=== PATIENT | female | born 1980 | race Hispanic/Latino ===

== ENCOUNTER 2021-09-20 11:36 | Emergency (ER) | payer OTHER ==
[2021-09-20] MEDS ORDERED: METHYLPREDNISOLONE 125 MG INJ ONE (14:02)
[2021-09-20] MEDS ORDERED: DIPHENHYDRAMINE 50 MG/ML VIAL ONE (14:03)
[2021-09-20] MEDS ORDERED: FAMOTIDINE 20 MG/2 ML VIAL IV ONE (14:03)
[2021-09-20] MEDS ORDERED: KETOROLAC 30 MG/ML INJ ONE (14:03)
[2021-09-20] MEDS ORDERED: NA CHLORIDE 0.9% 500 ML ONE (14:03)
--- NOTE | 2021-09-20 14:33 | ER ---
Nurse's Notes [facility] Name: Lyssa Bain Age: 41 yrs Sex: Female : 1980 Arrival Date: 09/20/2021 Time: 11:39 Bed 12 Private MD: Diagnosis: Acute allergic reaction Presentation: 09/20 11:59 Chief complaint: Patient states: Sore throat, headache, and facial swelling that began ss last night. Pt's only change has been Spironolactone 50 mg daily that she began taking 10 days ago. Coronavirus screen: Client denies travel out of the [place] in the last 14 days. Ebola Screen: Patient denies exposure to infectious person. Patient denies travel to an Ebola-affected area in the 21 days before illness onset. Onset: The symptoms/episode began/occurred last night. Anaphylaxis evaluation, no signs or symptoms of anaphylaxis were noted. Initial Sepsis Screen: Does the patient meet any 2 criteria? No. Patient's initial sepsis screen is negative. Does the patient have a suspected source of infection? No. Patient's initial sepsis screen is negative. Risk Assessment: Do you want to hurt yourself or someone else? Patient reports no desire to harm self or others. Onset of symptoms was September 19, 2021. 11:59 Method Of Arrival: Ambulatory ss 11:59 Acuity: STEPHANY 4 ss Historical: - Allergies: 12:01 No Known Allergies; ss - Home Meds: 12:01 Spironolactone Oral [Active]; ss - PSHx: 12:01 None; ss - Immunization history:: Client reports receiving the 2nd dose of the Covid vaccine. - Social history:: Smoking status: Patient denies any tobacco usage or history of. Screenin:49 Abuse screen: Denies threats or abuse. Denies injuries from another. Nutritional ss screening: No deficits noted. Tuberculosis screening: No symptoms or risk factors identified. Fall Risk None identified. Assessment: 12:26 Reassessment: mild swelling noted to eye lids. General: Appears uncomfortable, Behavior ss is calm, cooperative. Pain: Complains of pain in headache in general Pain currently is 7 out of 10 on a pain scale. Quality of pain is described as Last night Is continuous. Neuro: Level of Consciousness is awake, alert, obeys commands. Cardiovascular: Capillary refill < 3 seconds is brisk in bilateral fingers. Respiratory: Airway is patent Respiratory effort is even, unlabored, Respiratory pattern is regular, symmetrical, Breath sounds are clear bilaterally. Respiratory: Denies cough, shortness of breath pain with respiration, pain with cough, pain with movement. GI: No signs and/or symptoms were reported involving the gastrointestinal system. : No signs and/or symptoms were reported regarding the genitourinary system. EENT: Nares are clear. Derm: Skin is intact, is healthy with good turgor, Skin is dry, Skin is pink, warm \T\ dry. normal. 14:49 Reassessment: Patient appears in no apparent distress at this time. Patient and/or ss family updated on plan of care and expected duration. Pain level reassessed. Patient is alert, oriented x 3, equal unlabored respirations, skin warm/dry/pink. Vital Signs: 11:59 Pulse 68; Resp 15; Pulse Ox 99% on R/A; Weight 73.94 kg; Height 5 ft. 8 in. (172.72 ss cm); Pain 7/10; 12:03 BP 101 / 68; Temp 97.1(TE); ss 11:59 Body Mass Index 24.78 (73.94 kg, 172.72 cm) ED Course: 11:39 Patient arrived in ED. am2 11:51 Victor Manuel Fierro MD is Attending Physician. kdr 12:01 Triage completed. ss 12:01 Arm band placed on right wrist. ss 13:05 Inserted saline lock: 20 gauge in right antecubital area, using aseptic technique. aa5 14:16 Heavenly Leo, BABS is Primary Nurse. ss 14:49 Patient has correct armband on for positive identification. Bed in low position. Call ss light in reach. 14:49 No provider procedures requiring assistance completed. IV discontinued, intact, ss bleeding controlled, No redness/swelling at site. Pressure dressing applied. Administered Medications: 13:10 Drug: NS 0.9% 500 ml Route: IV; Rate: bolus; Site: right antecubital; aa5 14:17 Follow up: IV Status: Completed infusion; IV Intake: 500ml ss 13:11 Drug: Benadryl (diphenhydrAMINE) 25 mg Route: IVP; Site: right antecubital; aa5 14:51 Follow up: Response: No adverse reaction; Marked relief of symptoms ss 13:11 Drug: SOLU-Medrol (methylPrednisoLONE) 125 mg Route: IVP; Site: right antecubital; aa5 14:51 Follow up: Response: No adverse reaction; Marked relief of symptoms ss 13:11 Drug: Ketorolac 15 mg Route: IVP; Site: right antecubital; aa5 14:51 Follow up: Response: No adverse reaction; Marked relief of symptoms ss 13:11 Drug: Pepcid (famotidine) 20 mg Route: PO; aa5 14:17 Follow up: Response: No adverse reaction ss Intake: 14:17 IV: 500ml; Total: 500ml. ss Outcome: 14:33 Discharge ordered by . kdr 14:49 Discharged to home ambulatory. ss 14:49 Condition: good 14:49 Discharge instructions given to patient, family, Instructed on discharge instructions, follow up and referral plans. medication usage, Demonstrated understanding of instructions, follow-up care, medications, Prescriptions given X 3. 15:01 Patient left the ED. ss Signatures: Victor Manuel Fierro MD MD kdr Calderon, Audri, RN RN aa5 Heavenly Leo, BABS RN Brea Red
--- NOTE | 2021-09-20 14:33 | EDPHYS ---
Physician Documentation [facility] Name: Lyssa Bain Age: 41 yrs Sex: Female : 1980 Arrival Date: 09/20/2021 Time: 11:39 Bed 12 Private MD: ED Physician Victor Manuel Fierro HPI: 09/20 16:58 This 41 yrs old Female presents to ER via Ambulatory with complaints of kdr Allergic Reaction. 16:58 Onset: The symptoms/episode began/occurred gradually, yesterday. Associated signs and kdr symptoms: The patient has no apparent associated signs or symptoms. Possible causes: The patient has no known obvious cause for the symptoms, Spironolactone. At home the patient or guardian has treated the symptoms with Benadryl. Severity of symptoms: At their worst the symptoms were mild in the emergency department the symptoms are unchanged. The patient has not experienced similar symptoms in the past. The patient has been recently seen by a physician: the patient's primary care provider, 1 week(s) ago. Patient complains of sore throat, headache and facial swelling that began last evening. Patient denies any specific exposure. Patient has had a new medication started, spironolactone, about 10 days ago.. Historical: - Allergies: 12:01 No Known Allergies; ss - Home Meds: 12:01 Spironolactone Oral [Active]; ss - PSHx: 12:01 None; ss - Immunization history:: Client reports receiving the 2nd dose of the Covid vaccine. - Social history:: Smoking status: Patient denies any tobacco usage or history of. ROS: 16:58 Constitutional: Negative for fever, chills, and weight loss, Neck: Negative for injury, kdr pain, and swelling, Cardiovascular: Negative for chest pain, palpitations, and edema, Respiratory: Negative for shortness of breath, cough, wheezing, and pleuritic chest pain, Abdomen/GI: Negative for abdominal pain, nausea, vomiting, diarrhea, and constipation, Back: Negative for injury and pain, : Negative for injury, bleeding, discharge, and swelling, MS/Extremity: Negative for injury and deformity, Skin: Negative for injury, rash, and discoloration, Neuro: Negative for headache, weakness, numbness, tingling, and seizure activity. Psych: Negative for depression, anxiety, suicide ideation, homicidal ideation, and hallucinations, Allergy/Immunology: Negative for hives, rash, and allergies, Endocrine: Negative for neck swelling, polydipsia, polyuria, polyphagia, and marked weight changes, Hematologic/Lymphatic: Negative for swollen nodes, abnormal bleeding, and unusual bruising. 16:58 Eyes: Positive for swelling, of the right upper eyelid and left upper eyelid. Exam: 16:58 Constitutional: This is a well developed, well nourished patient who is awake, alert, kdr and in no acute distress. 16:58 Head/face: Noted is swelling, that is mild, of the forehead, right eye and left eye. Vital Signs: 11:59 Pulse 68; Resp 15; Pulse Ox 99% on R/A; Weight 73.94 kg; Height 5 ft. 8 in. (172.72 ss cm); Pain 7/10; 12:03 BP 101 / 68; Temp 97.1(TE); ss 11:59 Body Mass Index 24.78 (73.94 kg, 172.72 cm) ss MDM: 14:33 Patient medically screened. kdr 16:58 Data reviewed: vital signs, nurses notes, lab test result(s). Counseling: I had a kdr detailed discussion with the patient and/or guardian regarding: the historical points, exam findings, and any diagnostic results supporting the discharge/admit diagnosis, lab results, the need for outpatient follow up. ED course: Patient improved greatly with the interventions given. She was happy with the care provided and the plan for discharge and follow-up. Administered Medications: 13:10 Drug: NS 0.9% 500 ml Route: IV; Rate: bolus; Site: right antecubital; aa5 14:17 Follow up: IV Status: Completed infusion; IV Intake: 500ml ss 13:11 Drug: Benadryl (diphenhydrAMINE) 25 mg Route: IVP; Site: right antecubital; aa5 14:51 Follow up: Response: No adverse reaction; Marked relief of symptoms ss 13:11 Drug: SOLU-Medrol (methylPrednisoLONE) 125 mg Route: IVP; Site: right antecubital; aa5 14:51 Follow up: Response: No adverse reaction; Marked relief of symptoms ss 13:11 Drug: Ketorolac 15 mg Route: IVP; Site: right antecubital; aa5 14:51 Follow up: Response: No adverse reaction; Marked relief of symptoms ss 13:11 Drug: Pepcid (famotidine) 20 mg Route: PO; aa5 14:17 Follow up: Response: No adverse reaction ss Disposition Summary: 09/20/21 14:33 Discharge Ordered Location: Home kdr Problem: new kdr Symptoms: have improved kdr Condition: Stable kdr Diagnosis - Acute allergic reaction kdr Followup: kdr - With: Private Physician - When: 2 - 3 days - Reason: If symptoms return, Further diagnostic work-up, Recheck today's complaints, Continuance of care, Re-evaluation by your physician Discharge Instructions: - Discharge Summary Sheet kdr - Drug Allergy, [id number] kdr Forms: - Medication Reconciliation Form kdr - Thank You Letter kdr Prescriptions: - Benadryl 25 mg Oral Capsule - take 1 capsule by ORAL route every 4-6 hours As needed; 30 tablet; Refills: 0, kdr Product Selection Permitted - Pepcid 20 mg Oral Tablet - take 1 tablet by ORAL route every 12 hours for 10 days; 20 tablet; Refills: 0, kdr Product Selection Permitted - Medrol (Mario) 4 mg Oral Tablets, Dose Pack - take 1 tablet by ORAL route as directed - follow package instructions; 1 kdr packet; Refills: 0, Product Selection Permitted Signatures: Victor Manuel Fierro MD MD kdr Sonya Cleaning RN RN aa5 Heavenly Leo RN RN ss
[2021-09-20 15:20] VITALS: O2SAT 99
[2021-09-20 15:21] VITALS: BP 101/68; TEMP 97.1
== END 2021-09-20 15:01 | disposition home or self-care (01) ==
LOC: ER 11:36
DX: R07.0 Pain in throat (principal); R22.9 Localized swelling, mass and lump, unspecified
CPT/HCPCS: 96361; 96375; 96374; 99283; J1200; J7040; J2930

== ENCOUNTER 2022-07-24 11:05 | Emergency (ER) | payer OTHER ==
--- OUTSIDE RECORDS SUMMARY | 2022-07-24 11:08 | XMS REPORT | Clinical Summary ---
:1980 Author Organization [facility] Address [address] [place] [address] Care Team Providers Name Role Phone Benjamin Anne MD Primary Care Provider Allergies Active Allergy Reactions Severity Noted Date Comments Oseltamivir Phosphate Itching 01/05/2015 Medications Medication Sig Dispensed Refills Start Date End Date Status multivitamin Take 1 tablet by 0 Active (multivitamin) tablet mouth daily. 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 05/17/2018 Cervical high risk human papillomavirus (HPV) DNA test positive 04/14/2017 Body mass index 25-29 - overweight 11/21/2016 Surgical History Surgery Date Site/Laterality Comments CERVICAL BIOPSY 06/14/2017 SECTION, LOW TRANSVERSE x3 TUBAL LIGATION 11/22/2016 Bilateral EXCISION OF CERVIX USING LOOP ELECTRODE 05/21/2017 - 06/20/2017 Medical History Medical History Date Comments Cervical intraepithelial neoplasia grade III with 05/17/2018 severe dysplasia Body mass index 25-29 - overweight 2017 Cardiac murmur 1980 present since Menorrhagia 10/10/2018 Family History Medical History Relation Name Comments Leukemia Other Niece Relation Name Status Comments Brother 1 Alive Brother 2 Alive Father Alive Mother Alive Other Niece Alive Sister Alive Social History Tobacco Use Types Packs/Day Years Used Date Never Smoker Smokeless Tobacco: Never Used Alcohol Use Standard Drinks/Week Comments Yes 0 (1 standard drink = 0.6 oz pure alcoho l) socially Alcohol Habits Answer Date Recorded How often do you have a drink containing alcohol? Not asked How many drinks containing alcohol do you have on a typical Not asked day when you are drinking? How often do you have six or more drinks on one occasion? No t asked Comment: socially 10/27/2018 Sex Assigned at Date Recorded Not on file Obstetrics History Para Term AB IAB SAB Ectopic Multiple Living Live Births 4 4 0 4 Date Outcome GA Total Labor/2nd/3rd Weight Sex Delivery Anes PTL Cici A 1 A5 Name Clin Labor Para Para Para Para Comments Menarche 9 Parity 22 Last pap 08/07/18 negative Last Filed Vital Signs Not on file Plan of Treatment Health Maintenance Due Date Last Done Comments COVID-19 Vaccination (#1) 03/06/1983 Results Not on fileafter 07/24/2021 Care Teams Stem Teacher Relationship Specialty Start Date End Date Benjamin Anne MD PCP - General Gynecologic Medical 05/16/18 01/13/22 [facility] [place], [place] [id number]
--- OUTSIDE RECORDS SUMMARY | 2022-07-24 11:08 | XMS REPORT | Continuity of Care Document ---
:1980 Author Organization [facility] t Address [address] [place] [address] Care Team Providers Name Role Phone Pcp, Patient Does Not Have A Primary Care Physician [id number] Jessenia Millan MD Attending Clinician JESSENIA MILLAN Attending Clinician Unavailable Doctor Unassigned, [place] Attending Clinician Unavailable Payers Payer Name Policy Type Policy Number Effective Date Expiration Date S ource Problems Condition Condition Condition Status Onset Resolution Last Treating Co mments Source Name Details Category Date Date Treatment Clinician Date Menorrhagi Menorrhagi Disease Active 2017-11 U carl a fred 1-20 ity of 00:00: [place] 00 [facility] Cervical Cervical Disease Active Unive rs intraepith intraepith 6-27 it y of elial elial 00:00: [place] neoplasia neoplasia 00 grade III grade III Kaz rso with with n severe severe Cancer dysplasia dysplasia Cent er Cervical Cervical Disease Active Unive rs high risk high risk 5-25 ity of human human 00:00: [place] papillomav papillomav 00 irus (HPV) irus (HPV) An derso DNA test DNA test n positive positive Cancer Center Other Other Disease Active Univers general general 5-03 it[place] of counseling [place] and advice and advice 00 Mo dical for for Branch contracept contracept rosey rosey management management Over Over Disease Active Univers weight weight 5-03 ity of 00:00: [place] 00 Medical Branch History of History of Disease Active U nivers tubal tubal 1-02 ity of ligation ligation 00:00: [place] 00 Medical Branch Body mass Body mass Disease Active Uni vers index index 1-01 ity of 25-29 - 25-29 - 00:00: [place] overweight overweight 00 MD [facility] Heart Heart Disease Active 2013-11 Univers murmur murmur 0-13 ity of 00:00: [place] 00 Medical Branch Allergies, Adverse Reactions, Alerts Allergy Allergy Status Severity Reaction(s) Onset Inactive Treating Comm ents Source Name Type Date Date Clinician OSELTAMI DRUG Active ITCHING Univers VIR INGREDI 2-15 ity of PHOSPHAT 00:00: [place] E 00 Medical Branch Oseltami Propensi Active Itching Unive rs vir ty to 2-15 ity of Phosphat adverse 00:00: [place] e reaction 00 [facility] Family History Family Member Diagnosis Comments Start Date Stop Date Source [facility] [place] [facility] Natural father [facility] MD [facility] [place] Natural mother [facility] [place] Other Leukemia [facility] [place] Natural sister [facility] Social History Social Habit Start Date Stop Date Quantity Comments Source Exposure to Not sure University SARS-CoV-2 [place] Medical (event) Branch History SDOH University o f Alcohol Frequency [facility] History SDOH University o f Alcohol Std [place] MD [facility] History SDOH University o f Alcohol Binge [place] MD [facility] Alcohol intake 2019-10-26 2019-10-26 Current drinker Unive rsity of 00:00:00 00:00:00 of alcohol [place] MD Eliazar [facility] (finding) [facility] Alcohol Comment 2018-10-27 2018-10-27 socially Universit y of 00:00:00 00:00:00 [facility] Tobacco use and 2018-05-17 2018-05-17 Smokeless tobacco Un iversity of exposure 00:00:00 00:00:00 non-user [facility] Sex Assigned At [birth year] Universit y of 00:00:00 00:00:00 [facility] Smoking Status Start Date Stop Date Source Never smoked tobacco [facility] Medications Ordered Filled Start Stop Current Ordering Indication Dosage Frequency Signature Comments Components Source Medication Medication Date Date Medication? Clinician (SIG) Name Name multivluceromi 2017-11 Yes 1{tbl} Take 1 Un marya n 2-07 tablet by ity of (multivitam 11:47: mouth [place] in) tablet 14 daily. MD [facility] 2016-0 Yes 1{tbl} Take 1 Unive rs vitamin 3-20 tablet by ity of w/FA tablet 00:00: mouth [place] 00 daily. Medical Branch docusate Yes 240mg Take 1 Univer s calcium 240 3-20 capsule by it y of mg capsule 00:00: mouth [place] 00 daily as Medical needed for Branch Constipati on. ferrous Yes 325mg Take 1 Univers sulfate 325 3-20 tablet by ity of mg (65 mg 00:00: mouth 2 [place] iron) 00 (two) Medical tablet times Branch daily. acetaminoph Yes 1{tbl} Take 1-2 Univers en-codeine 3-20 tablets by ity of 300-30 mg 00:00: mouth [place] tablet 00 every 6 Medical (six) Branch hours as needed for Pain (scale 1-3) or Pain (scale 4-6). For patients < 12 years recommend do not exceed 5 doses or 2.6 gm in 24 hours totals for all acetaminop hen containing products. For adults with normal hepatic function recommend do not exceed 3 grams in 24 hours for all acetaminop hen containing products. ibuprofen Yes 600mg Take 1 Unive rs 600 mg 3-20 tablet by ity of tablet 00:00: mouth [place] 00 every 6 Medical (six) Branch hours as needed for Pain (scale 1-3). Take with food or milk. 2017-0 Yes 1{tbl} Take 1 Unive rs vitamin 3-20 tablet by ity of w/FA tablet 00:00: mouth [place] 00 daily. Medical Branch docusate Yes 240mg Take 1 Univer s calcium 240 3-20 capsule by it y of mg capsule 00:00: mouth once [place] 00 daily as Medical needed for Branch Constipati on. ferrous Yes 325mg Take 1 Univers sulfate 325 3-20 tablet by ity of mg (65 mg 00:00: mouth 2 [place] iron) 00 (two) Medical tablet times Branch daily. acetaminoph Yes 1{tbl} Take 1-2 Univers en-codeine 3-20 tablets by ity of 300-30 mg 00:00: mouth [place] tablet 00 every 6 Medical (six) Branch hours as needed for Pain (scale 1-3) or Pain (scale 4-6). For patients < 12 years recommend do not exceed 5 doses or 2.6 gm in 24 hours totals for all acetaminop hen containing products. For adults with normal hepatic function recommend do not exceed 3 grams in 24 hours for all acetaminop hen containing products. ibuprofen 2016- Yes 600mg Take 1 Unive rs 600 mg 3-20 tablet by ity of tablet 00:00: mouth [place] 00 every 6 Medical (six) Branch hours as needed for Pain (scale 1-3). Take with food or milk. Immunizations Ordered Filled Immunization Date Status Comments [facility] e Immunization Name Name [facility] 2016-11-22 Completed University 00:00:00 [facility] 2016-11-22 Completed University 00:00:00 [facility] 2014-10-29 Completed University of 00:00:00 [facility] 2014-10-29 Completed University of 00:00:00 [facility] 2006-06-06 Completed University of 00:00:00 [facility] 2006-06-06 Completed [facility] 00:00:00 [facility] Vital Signs Vital Name Observation Time Observation Value Comments Source Systolic blood 2021-08-24 20:03:00 109 mm[Hg] Univer sity of pressure [facility] Diastolic blood 2021-08-24 20:03:00 55 mm[Hg] Unive rsity of pressure [facility] Heart rate 2021-08-24 20:03:00 55 /min [facility] Body temperature 2021-08-24 20:03:00 37 [place] Respiratory rate 2021-08-24 20:03:00 16 /min [facility] Body weight 2021-08-24 20:03:00 71.396 kg [facility] BMI 2021-08-24 20:03:00 23.93 kg/m2 [facility] Oxygen saturation in 2021-08-24 20:03:00 100 /min [facility] Arterial blood by [facility] Pulse oximetry Branch Procedures Procedure Date / Time Performed Performing Clinician Kirill machado ASSIGNMENT OF BENEFITS 2021-08-24 19:52:20 Doctor Unassigned, Inocencia [facility] Plan of Care Planned Activity Planned Date Details Comments Source Future Scheduled 2022-05-26 COVID-19 Vaccination Uni versity of [place] Test 05:44:46 (#1) [code = COVID-19 [facility] (#1)] Center Encounters Start End Encounter Admission Attending Care Care Encounter Source Date/Time Date/Time Type Type Clinicians Facility Department ID [id number] Common 14:22:43 [id number] [facility] 2021-08-24 2021-08-24 [facility] [id number] Univers 14:58:16 15:17:[facility] [id number] it y of [place] [id number] Rafa as Angelito?Blea [id number] [address] Medical Office Building 2021-08-24 2021-08-24 Outpatient [facility] [id number] Univers 15:00:00 15:00:[id number] [facility] 2021-08-24 2021-08-24 [id number] Univers 15:00:00 15:00:[address] [facility] 2021-08-24 2021-08-24 Orders Doctor BERUMEN [id number] Univers 00:00:00 00:00:00 Only Unassigned, JAGDISH [id number] [facility] [id number] Rafa as [id number] [facility] 009 Branch Results This patient has no known results.
[2022-07-24] MEDS ORDERED: PANTOPRAZOLE 40MG TABLET PO ONE (12:32)
[2022-07-24] MEDS ORDERED: IBUPROFEN 400 MG TAB ONE (12:32)
[2022-07-24] MEDS ORDERED: predniSONE 20 MG TAB ONE (12:32)
--- NOTE | 2022-07-24 12:44 | EDPHYS ---
Physician Documentation [facility] Name: Lyssa Bain Age: 41 yrs Sex: Female : 1980 Arrival Date: 07/24/2022 Time: 11:14 Bed DIS1 Private MD: ED Physician Victor Manuel Fierro HPI: 07/24 13:13 This 41 yrs old Female presents to ER via Ambulatory with complaints of COVID+.kdr 13:13 Patient states that she has been having a cough, sore throat, body aches for the last 5 kdr days. She took a home COVID test this morning and it was positive. She goes to the [employer] locally and that may have been her source.. Onset: The symptoms/episode began/occurred gradually, 1 week(s) ago. Severity of symptoms: At their worst the symptoms were mild in the emergency department the symptoms are unchanged. The patient has not experienced similar symptoms in the past. The patient has not recently seen a physician. 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 - Social history:: Smoking status: Patient denies any tobacco usage or history of. ROS: 13:13 Constitutional: Negative for fever, chills, and weight loss she has had general malaise kdr Eyes: Negative for injury, pain, redness, and discharge, ENT: Negative for injury, pain, and discharge, Neck: Negative for injury, pain, and swelling, Cardiovascular: Negative for chest pain, palpitations, and edema, Abdomen/GI: Negative for abdominal pain, nausea, vomiting, diarrhea, and constipation, Back: Negative for injury and pain, : Negative for injury, bleeding, discharge, and swelling, MS/Extremity: Negative for injury and deformity, Skin: Negative for injury, rash, and discoloration, Neuro: Negative for headache, weakness, numbness, tingling, and seizure activity. 13:13 Respiratory: Positive for cough, Negative for dyspnea on exertion, hemoptysis, orthopnea, pleurisy, shortness of breath, sputum production, wheezing. 13:13 ENT: Positive for sore throat, Negative for drainage from ear(s). kdr Exam: 13:13 Constitutional: This is a well developed, well nourished patient who is awake, alert, kdr and in no acute distress. Head/Face: Normocephalic, atraumatic. Eyes: Pupils equal round and reactive to light, extra-ocular motions intact. Lids and lashes normal. Conjunctiva and sclera are non-icteric and not injected. Cornea within normal limits. Periorbital areas with no swelling, redness, or edema. Chest/axilla: Normal chest wall appearance and motion. Nontender with no deformity. No lesions are appreciated. Cardiovascular: Regular rate and rhythm with a normal S1 and S2. No gallops, murmurs, or rubs. Normal PMI, no JVD. No pulse deficits. Respiratory: Lungs have equal breath sounds bilaterally, clear to auscultation and percussion. No rales, rhonchi or wheezes noted. No increased work of breathing, no retractions or nasal flaring. Abdomen/GI: Soft, non-tender, with normal bowel sounds. No distension or tympany. No guarding or rebound. No evidence of tenderness throughout. Back: No spinal tenderness. No costovertebral tenderness. Full range of motion. Skin: Warm, dry with normal turgor. Normal color with no rashes, no lesions, and no evidence of cellulitis. MS/ Extremity: Pulses equal, no cyanosis. Neurovascular intact. Full, normal range of motion. Neuro: Awake and alert, GCS 15, oriented to person, place, time, and situation. Cranial nerves II-XII grossly intact. Motor strength 5/5 in all extremities. Sensory grossly intact. Cerebellar exam normal. Normal gait. Psych: Awake, alert, with orientation to person, place and time. Behavior, mood, and affect are within normal limits. 13:13 Neck: ROM/movement: no acute changes, pain, limited range of motion. Vital Signs: 11:33 BP 121 / 87; Pulse 71; Resp 18; Temp 98.9(O); Pulse Ox 100% on R/A; Weight 77.11 kg iw (R); Height 5 ft. 8 in. (172.72 cm); Pain 8/10; 11:33 Body Mass Index 25.85 (77.11 kg, 172.72 cm) iw MDM: 12:44 Patient medically screened. kdr 13:13 Data reviewed: vital signs, nurses notes, lab test result(s). Counseling: I had a kdr detailed discussion with the patient and/or guardian regarding: the historical points, exam findings, and any diagnostic results supporting the discharge/admit diagnosis, lab results, the need for outpatient follow up. Administered Medications: 12:24 Drug: ProTONIX (pantoprazole) 40 mg Route: PO; iw 12:51 Follow up: Response: No adverse reaction iw 12:25 Drug: Ibuprofen 800 mg Route: PO; iw 12:51 Follow up: Response: No adverse reaction iw 12:25 Drug: predniSONE 60 mg Route: PO; iw 12:51 Follow up: Response: No adverse reaction iw 12:51 Drug: Tessalon Perle (benzonatate) 200 mg Route: PO; iw 12:53 Follow up: Response: No adverse reaction iw Disposition Summary: 07/24/22 12:44 Discharge Ordered Location: Home kdr Problem: new kdr Symptoms: have improved kdr Condition: Stable kdr Diagnosis - SARS-associated coronavirus as the cause of diseases classified elsewhere kdr - Cough kdr Followup: kdr - With: Private Physician - When: 2 - 3 days - Reason: If symptoms return, Further diagnostic work-up, Recheck today's complaints, Continuance of care, Re-evaluation by your physician Discharge Instructions: - Discharge Summary Sheet kdr - Cough, Adult, [id number] kdr - COVID-19 kdr - Things to Know about the COVID-19 Pandemic - [facility] kdr - 10 Things You Can Do to Manage Your COVID-19 Symptoms at Home - [facility] kdr - Viral Illness, Adult kdr - COVID-19: Quarantine vs. Isolation - [facility] kdr - Prevent the Spread of COVID-19 if You Are Sick - [facility] kdr Forms: - Medication Reconciliation Form kdr - Thank You Letter kdr Prescriptions: - albuterol sulfate 90 mcg/actuation Inhalation HFA aerosol inhaler - inhale 2 puff by INHALATION route every 4 hours As needed; 2 canister; Refills: kdr 0, Product Selection Permitted - Ibuprofen 800 mg Oral Tablet - take 1 tablet by ORAL route every 8 hours As needed take with food; 30 tablet; kdr Refills: 0, Product Selection Permitted - Tessalon Perles 100 mg Oral Capsule - take 1 capsule by ORAL route every 8 hours As needed; 15 capsule; Refills: 0, kdr Product Selection Permitted - Medrol (Mario) 4 mg Oral Tablets, Dose Pack - take 1 tablet by ORAL route as directed - follow package instructions; 1 kdr packet; Refills: 0, Product Selection Permitted Signatures: Victor Manuel Fierro MD MD kdr Idalia Cardona RN RN iw
--- NOTE | 2022-07-24 12:44 | ER ---
Nurse's Notes [facility] Name: Lyssa Bain Age: 41 yrs Sex: Female : 1980 Arrival Date: 07/24/2022 Time: 11:14 Bed DIS1 Private MD: Diagnosis: SARS-associated coronavirus as the cause of diseases classified elsewhere;Cough Presentation: 07/24 11:35 Chief complaint: Patient states: I have been having cough, sore throat, and body aches iw for five days and today I took a home COVID test and it was positive. Coronavirus screen: Client presents with at least one sign or symptom that may indicate coronavirus-19. Standard/surgical mask placed on the client. Client reports previous positive COVID test result. Date of collection: July 24, 2022. Ebola Screen: No symptoms or risks identified at this time. Initial Sepsis Screen: Does the patient meet any 2 criteria? No. Patient's initial sepsis screen is negative. Does the patient have a suspected source of infection? No. Patient's initial sepsis screen is negative. Risk Assessment: Do you want to hurt yourself or someone else? Patient reports no desire to harm self or others. Onset of symptoms was July 21, 2022. Care prior to arrival: None. 11:35 Method Of Arrival: Ambulatory iw 11:35 Acuity: STEPHANY 4 iw Triage Assessment: 11:37 General: Appears in no apparent distress. uncomfortable, well groomed, well developed, iw Behavior is calm, cooperative, appropriate for age. Pain: Complains of pain in forehead Pain does not radiate. EENT: Oral mucosa is moist. Parent/caregiver reports the patient having nasal congestion nasal discharge. Neuro: No deficits noted. Cardiovascular: No deficits noted. Denies shortness of breath, Chest pain is denied. Respiratory: Reports cough that is dry, persistent pain with cough Airway is patent Respiratory effort is even, unlabored, Respiratory pattern is regular, symmetrical, Breath sounds are clear bilaterally. GI: No deficits noted. No signs and/or symptoms were reported involving the gastrointestinal system. : No deficits noted. No signs and/or symptoms were reported regarding the genitourinary system. Derm: No deficits noted. No signs and/or symptoms reported regarding the dermatologic system. Musculoskeletal: No deficits noted. No signs and/or symptoms reported regarding the musculoskeletal system. 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 - Social history:: Smoking status: Patient denies any tobacco usage or history of. Screenin:53 Abuse screen: Denies threats or abuse. Nutritional screening: No deficits noted. iw Tuberculosis screening: No symptoms or risk factors identified. Fall Risk None identified. Assessment: 12:53 Reassessment: No changes from previously documented assessment. iw Vital Signs: 11:33 BP 121 / 87; Pulse 71; Resp 18; Temp 98.9(O); Pulse Ox 100% on R/A; Weight 77.11 kg iw (R); Height 5 ft. 8 in. (172.72 cm); Pain 8/10; 11:33 Body Mass Index 25.85 (77.11 kg, 172.72 cm) iw ED Course: 11:14 Patient arrived in ED. am2 11:37 Triage completed. iw 11:37 Arm band placed on right wrist. iw 11:45 Victor Manuel Fierro MD is Attending Physician. kdr 12:41 Idalia Cardona, RN is Primary Nurse. iw 12:53 Patient has correct armband on for positive identification. iw 12:53 No provider procedures requiring assistance completed. IV discontinued, intact, iw bleeding controlled, No redness/swelling at site. Pressure dressing applied. Administered Medications: 12:24 Drug: ProTONIX (pantoprazole) 40 mg Route: PO; iw 12:51 Follow up: Response: No adverse reaction iw 12:25 Drug: Ibuprofen 800 mg Route: PO; iw 12:51 Follow up: Response: No adverse reaction iw 12:25 Drug: predniSONE 60 mg Route: PO; iw 12:51 Follow up: Response: No adverse reaction iw 12:51 Drug: Tessalon Perle (benzonatate) 200 mg Route: PO; iw 12:53 Follow up: Response: No adverse reaction iw Medication: 12:53 VIS not applicable for this client. iw Outcome: 12:44 Discharge ordered by . kdr 12:53 Discharged to home ambulatory, with family. iw 12:53 Condition: improved 12:53 Discharge instructions given to patient, family, Instructed on discharge instructions, follow up and referral plans. medication usage, Demonstrated understanding of instructions, follow-up care, medications, Prescriptions given X 4. 12:54 Patient left the ED. iw Signatures: Victor Manuel Fierro MD MD kdr Idalia Cardona RN RN Brea Barber
[2022-07-24] MEDS ORDERED: BENZONATATE 100 MG CAP PO ONE (13:02)
[2022-07-24 13:09] VITALS: BP 121/87; TEMP 98.9; O2SAT 100
== END 2022-07-24 12:54 | disposition home or self-care (01) ==
LOC: ER 11:05
DX: U07.1 COVID-19 (principal)
CPT/HCPCS: 99283; J7512

== ENCOUNTER 2023-09-28 09:18 | Emergency (ER) | payer OTHER ==
[2023-09-28 10:19] LABS: Specific Gravity 1.011 (1.005-1.030)
[2023-09-28] MEDS ORDERED: KETOROLAC 30 MG/ML INJ ONE (10:32)
--- NOTE | 2023-09-28 11:06 | RAD REPORT ---
EXAM DESCRIPTION: CT - Stone Protocol - 09/28/2023 10:27 am CLINICAL HISTORY: Abdominal distention;Abd pain COMPARISON: No comparisons TECHNIQUE: Thin cut axial CT imaging of the abdomen and pelvis was performed without IV contrast. Mu ltiplanar reformats were generated and reviewed. All CT scans are performed using dose optimization technique as appropriate and may include automated exposure control or mA/KV adjustment according to patient size. FINDINGS: No suspicious findings in the lung bases. The liver, spleen, and pancreas show no suspicious findings. Gallbladder shows multiple stone, includ ing the most sizable 3.1 cm cholesterol containing stone along the body. Symmetric renal contour, without suspicious parenchymal findings within limits of noncontrast techniq ue. No evidence of radiopaque calculi or hydroureteronephrosis. No dilated bowel loops or bowel wall thickening. No free air, free fluid or inflammatory stranding. N o hernia, mass or bulky lymphadenopathy. The urinary bladder is without significant finding. No suspicious bony findings. Multilevel Schmorl's node formation. IMPRESSION: Cholelithiasis. No other acute intra-abdominal process.
[2023-09-28 11:31] LABS: Absolute Lymphocytes (CBC) 2.6 K/uL (0.7-4.9); Hematocrit 34.3 % (36.0-45.0); Lymphocytes % 33.7 % (15.3-44.8); MCV 77.9 fL (80-100); MPV 9.5 fL (7.6-11.3); Platelets 181 thou/uL (152-406); RBC Red Blood Cell Count 4.41 M/uL (3.86-4.86)
[2023-09-28 11:42] LABS: Specific Gravity 1.011 (1.005-1.030); Urine Bacteria <20 /HPF (<20); Urine Bilirubin NEGATIVE (Negative); Urine Blood Negative (Negative); Urine Clarity Clear (Clear); Urine Color Colorless (Yellow); Urine Glucose NEGATIVE (Negative); Urine Mucus Slight /HPF (None Seen); Urine Protein NEGATIVE (Negative); Urine RBC <5 /HPF (None Seen); Urine Urobilinogen Normal (Normal); Urine pH 6.5 (5.0-7.0)
[2023-09-28 11:51] LABS: Albumin 3.2 g/dL (3.4-5.0); Bilirubin Total 0.2 mg/dL (0.2-1.0); Potassium 3.9 mEq/L (3.5-5.1); Protein, Total 6.9 g/dL (6.4-8.2)
[2023-09-28] MEDS ORDERED: FAMOTIDINE 20 MG/2 ML VIAL IV ONE (12:00)
[2023-09-28] MEDS ORDERED: NA CHLORIDE 0.9% 1,000 ML ONE (12:00)
[2023-09-28] MEDS ORDERED: HYDROCODONE/APAP 5/325 MG TAB ONE (12:25)
--- NOTE | 2023-09-28 12:26 | RAD REPORT ---
EXAM DESCRIPTION: US - Pelvis Complete - 09/28/2023 12:04 pm CLINICAL HISTORY: ABD PAIN Pelvic pain. COMPARISON: Transvaginal Study Probe dated 09/28/2023; Stone Protocol dated 09/28/2023 TECHNIQUE: Sonographic grayscale and color flow images of the pelvis were obtained through transab dominal and transvaginal approach. FINDINGS: The uterus is normal in size, shape and echotexture. The uterus measures 9 cm in length. M ultiple nabothian cysts. The endometrial stripe measures 1 cm in thickness. Both ovaries are normal in size, shape and echotexture. The right ovary measures 3.4 x 2.3 x 2.8 cm. The left ovary measures 3.0 x 2.2 x 2.4 cm. No suspicious ovarian or parovarian lesions. Small foll icles bilaterally not exceeding 1.2 cm. No adnexal masses. Normal Doppler blood flow was demonstrated to both ovaries. No significant pelvic ascites. IMPRESSION: Endometrial stripe mildly prominent measuring 1 cm in thickness. Please correlate with m enstrual phase. No other suspicious pelvic process.
--- NOTE | 2023-09-28 12:30 | RAD REPORT ---
EXAM DESCRIPTION: US - Transvaginal Study Probe - 09/28/2023 12:01 pm CLINICAL HISTORY: ABD PAIN Pelvic pain. COMPARISON: Transvaginal Study Probe dated 09/28/2023; Stone Protocol dated 09/28/2023 TECHNIQUE: Sonographic grayscale and color flow images of the pelvis were obtained through transabd ominal and transvaginal approach. FINDINGS: The uterus is normal in size, shape and echotexture. The uterus measures 9 cm in length. M ultiple nabothian cysts. The endometrial stripe measures 1 cm in thickness. Both ovaries are normal in size, shape and echotexture. The right ovary measures 3.4 x 2.3 x 2.8 cm. The left ovary measures 3.0 x 2.2 x 2.4 cm. No suspicious ovarian or parovarian lesions. Small foll icles bilaterally not exceeding 1.2 cm. No adnexal masses. Normal Doppler blood flow was demonstrated to both ovaries. No significant pelvic ascites. IMPRESSION: Endometrial stripe mildly prominent measuring 1 cm in thickness. Please correlate with m enstrual phase. No other suspicious pelvic process.
--- NOTE | 2023-09-28 12:38 | ER ---
Nurse's Notes [facility] Name: Lyssa Bain Age: 43 yrs Sex: Female : 1980 Arrival Date: 09/28/2023 Time: 09:18 Bed 18 Private MD: Diagnosis: Abdominal pain, Generalized Presentation: 09/28 09:35 Chief complaint: Patient states: hx of ovarian cysts , having back pain and abd pain, iw bloating. Coronavirus screen: At this time, the client does not indicate any symptoms associated with coronavirus-19. Ebola Screen: Patient negative for fever greater than or equal to 101.5 degrees Fahrenheit, and additional compatible Ebola Virus Disease symptoms Patient denies exposure to infectious person. Patient denies travel to an Ebola-affected area in the 21 days before illness onset. No symptoms or risks identified at this time. 09:35 Method Of Arrival: Ambulatory iw 09:35 Acuity: STEPHANY 3 iw 13:25 Initial Sepsis Screen: Does the patient meet any 2 criteria? No. Patient's initial db sepsis screen is negative. Does the patient have a suspected source of infection? No. Patient's initial sepsis screen is negative. Risk Assessment: Do you want to hurt yourself or someone else? Patient reports no desire to harm self or others. Onset of symptoms was September 28, 2023. Triage Assessment: 13:25 General: Appears in no apparent distress. comfortable, Behavior is calm, cooperative. db Neuro: Level of Consciousness is awake, alert, obeys commands, Oriented to person, place, time, situation. Historical: - Allergies: 09:36 anesthesia; iw - Home Meds: 09:37 None [Active]; iw - PMHx: 09:37 ovarian cyst; iw - PSHx: 09:36 section; iw - Immunization history:: Adult Immunizations Client reports receiving the 2nd dose of the Covid vaccine. - Social history:: Smoking status: Patient denies any tobacco usage or history of. Screenin:26 [facility] ED Fall Risk Assessment (Adult) History of falling in the last 3 months, db including since admission No falls in past 3 months (0 pts) Confusion or Disorientation No (0 pts) Intoxicated or Sedated No (0 pts) Impaired Gait No (0 pts) Mobility Assist Device Used No (0 pt) Altered Elimination No (0 pt) Score/Fall Risk Level 0 - 2 = Low Risk Oriented to surroundings, Maintained a safe environment. Abuse screen: Denies threats or abuse. Denies injuries from another. Nutritional screening: No deficits noted. Tuberculosis screening: No symptoms or risk factors identified. Assessment: 10:23 Reassessment: Patient appears in no apparent distress at this time. Patient and/or db family updated on plan of care and expected duration. Pain level reassessed. Patient is alert, oriented x 3, equal unlabored respirations, skin warm/dry/pink. PT TO CT. Pain: Complains of pain in back and abdomen. GI: Bowel sounds present X 4 quads. Abd is soft Abdomen is tender to palpation. 12:00 Reassessment: Patient appears in no apparent distress at this time. Patient and/or db family updated on plan of care and expected duration. Pain level reassessed. Patient is alert, oriented x 3, equal unlabored respirations, skin warm/dry/pink. 13:00 Reassessment: Patient appears in no apparent distress at this time. Patient and/or db family updated on plan of care and expected duration. Pain level reassessed. Patient is alert, oriented x 3, equal unlabored respirations, skin warm/dry/pink. Neuro: Level of Consciousness is awake, alert, obeys commands, Oriented to person, place, time, situation. Vital Signs: 09:37 BP 120 / 82; Pulse 73; Resp 16; Temp 98.7(O); Pulse Ox 100% on R/A; Weight 78.47 kg; iw Height 5 ft. 6 in. ; Pain 7/10; 12:11 BP 127 / 85; Pulse 64; Resp 16; Pulse Ox 100% on R/A; db 13:00 BP 119 / 74; Pulse 63; Resp 16; Pulse Ox 100% on R/A; db 09:37 Body Mass Index 27.80 (78.47 kg, 168 cm) iw 09:37 Pain Scale: Adult iw ED Course: 09:24 Patient arrived in ED. gm2 09:25 Zoe Grace FNP-C is PHCP. snw 09:25 Kayode Ervin DO is Attending Physician. snw 09:36 Triage completed. iw 09:38 Arm band placed on. iw 09:54 Shoshana Nagel, RN is Primary Nurse. db 10:23 Patient has correct armband on for positive identification. Bed in low position. Call db light in reach. Side rails up X 1. Pulse ox on. NIBP on. 10:26 No provider procedures requiring assistance completed. db 10:28 CT Stone Protocol In Process Unspecified. EDMS 11:20 Inserted saline lock: 22 gauge in right antecubital area, using aseptic technique. db Blood collected. 12:01 Transvaginal Study Probe In Process Unspecified. EDMS 12:03 US Pelvis Complete In Process Unspecified. EDMS 13:24 Provided Education on: DISCHARGE. db 13:24 IV discontinued, intact, bleeding controlled, No redness/swelling at site. db Administered Medications: 10:23 Drug: Ketorolac IM 30 mg IM once Route: IM; Site: right deltoid; db 11:23 Follow up: Response: No adverse reaction db 12:13 Drug: NS 0.9% IV 1000 ml IV at 1 bolus Per protocol; 1000 mL bolus Route: IV; Rate: 1 db bolus; Site: right antecubital; 13:26 Follow up: Response: No adverse reaction; IV Status: Completed infusion; IV Intake: db 1000ml 12:13 Drug: Famotidine IVP 20 mg IVP once; dilute with 10 mL 0.9% NaCl; give over 2 minutes db Route: IVP; Site: right antecubital; 13:26 Follow up: Response: No adverse reaction db 12:13 Drug: HYDROcodone-acetaminophen PO 5 mg-325 mg 1 tabs PO once Route: PO; db 13:26 Follow up: Response: No adverse reaction db Medication: 10:26 VIS not applicable for this client. db Intake: 13:26 IV: 1000ml; Total: 1000ml. db Outcome: 12:37 Discharge ordered by . tati 13:24 Discharged to home ambulatory, db 13:24 Condition: stable 13:24 Discharge instructions given to patient, Instructed on discharge instructions, follow up and referral plans. Prescriptions given X 2, 13:26 Patient left the ED. iw Signatures: Dispatcher [employer] EDZoe Cho, SURVEILLANCE SUPERVISOR-C SURVEILLANCE SUPERVISOR-Csnw Idalia Cardona, RN BABS iw Shoshana Nagel RN RN db Yara Morgan gm2 Corrections: (The following items were deleted from the chart) 13:24 12:11 LMP N/A - Hysterectomy, Not db db
--- NOTE | 2023-09-28 12:38 | EDPHYS ---
Physician Documentation [facility] Name: Lyssa Bain Age: 43 yrs Sex: Female : 1980 Arrival Date: 09/28/2023 Time: 09:18 Bed 18 Private MD: ED Physician Kayode Ervin HPI: 09/28 09:56 This 43 yrs old Female presents to ER via Ambulatory with complaints of snw Abdominal Pain, Nausea, Back Pain. 09:56 The patient presents with abdominal pain in the lower abdomen, that is diffuse, snw abdominal distention. Onset: The symptoms/episode began/occurred acutely. The symptoms radiate to back. Associated signs and symptoms: Pertinent positives: bloating, pain. The symptoms are described as constant. Modifying factors: The symptoms are alleviated by nothing, the symptoms are aggravated by touching the area, walking. Severity of pain: At its worst the pain was moderate severe in the emergency department the pain is unchanged. The patient has experienced similar episodes in the past. complicated ovarian cysts, cervical precancerous lesions, LMP 2 weeks ago. Pt evaluated at [facility] three months ago. Historical: - Allergies: 09:36 anesthesia; iw - Home Meds: 09:37 None [Active]; iw - PMHx: 09:37 ovarian cyst; iw - PSHx: 09:36 section; iw - Immunization history:: Adult Immunizations Client reports receiving the 2nd dose of the Covid vaccine. - Social history:: Smoking status: Patient denies any tobacco usage or history of. ROS: 10:00 Constitutional: Negative for fever, chills, and weight loss, Eyes: Negative for injury, snw pain, redness, and discharge, ENT: Negative for injury, pain, and discharge, Neck: Negative for injury, pain, and swelling, Cardiovascular: Negative for chest pain, palpitations, and edema, Respiratory: Negative for shortness of breath, cough, wheezing, and pleuritic chest pain, Back: Negative for injury, + referred pain, : Negative for injury, bleeding, discharge, and swelling, MS/Extremity: Negative for injury and deformity, Skin: Negative for injury, rash, and discoloration, Neuro: Negative for headache, weakness, numbness, tingling, and seizure, Psych: Negative for depression, anxiety, suicide ideation, homicidal ideation, and hallucinations, 10:00 Abdomen/GI: Positive for abdominal pain, abdominal distension, of the right lower quadrant and left lower quadrant, Exam: 10:00 Constitutional: This is a well developed, well nourished patient who is awake, alert, snw and in no acute distress. Head/Face: Normocephalic, atraumatic. Eyes: Pupils equal round and reactive to light, extra-ocular motions intact. Lids and lashes normal. Conjunctiva and sclera are non-icteric and not injected. Cornea within normal limits. Periorbital areas with no swelling, redness, or edema. ENT: Nares patent. No nasal discharge, no septal abnormalities noted. Tympanic membranes are normal and external auditory canals are clear. Oropharynx with no redness, swelling, or masses, exudates, or evidence of obstruction, uvula midline. Mucous membranes moist. Neck: Trachea midline, no thyromegaly or masses palpated, and no cervical lymphadenopathy. Supple, full range of motion without nuchal rigidity, or vertebral point tenderness. No Meningismus. Chest/axilla: Normal chest wall appearance and motion. Nontender with no deformity. No lesions are appreciated. Cardiovascular: Regular rate and rhythm with a normal S1 and S2. No gallops, murmurs, or rubs. Normal PMI, no JVD. No pulse deficits. Respiratory: Lungs have equal breath sounds bilaterally, clear to auscultation and percussion. No rales, rhonchi or wheezes noted. No increased work of breathing, no retractions or nasal flaring. Back: No spinal tenderness. No costovertebral tenderness. Full range of motion. Skin: Warm, dry with normal turgor. Normal color with no rashes, no lesions, and no evidence of cellulitis. MS/ Extremity: Pulses equal, no cyanosis. Neurovascular intact. Full, normal range of motion. Neuro: Awake and alert, GCS 15, oriented to person, place, time, and situation. Cranial nerves II-XII grossly intact. Motor strength 5/5 in all extremities. Sensory grossly intact. Cerebellar exam normal. Normal gait. Psych: Awake, alert, with orientation to person, place and time. Behavior, mood, and affect are within normal limits. 10:00 Abdomen/GI: Inspection: distension, that is mild, that is moderate, Bowel sounds: normal, Palpation: moderate abdominal tenderness, in the right lower quadrant and left lower quadrant, Vital Signs: 09:37 BP 120 / 82; Pulse 73; Resp 16; Temp 98.7(O); Pulse Ox 100% on R/A; Weight 78.47 kg; iw Height 5 ft. 6 in. ; Pain 7/10; 12:11 BP 127 / 85; Pulse 64; Resp 16; Pulse Ox 100% on R/A; db 13:00 BP 119 / 74; Pulse 63; Resp 16; Pulse Ox 100% on R/A; db 09:37 Body Mass Index 27.80 (78.47 kg, 168 cm) iw 09:37 Pain Scale: Adult iw MDM: 09:27 Patient medically screened. snw 10:01 Differential diagnosis: non-specific abd pain, urinary tract infection, ovarian cysts. snw Data reviewed: vital signs, nurses notes, radiologic studies, CT scan. I considered the following discharge prescriptions or medication management in the emergency department Medications were administered in the Emergency Department. See JAN. 11:23 Counseling: I had a detailed discussion with the patient and/or guardian regarding the snw historical points, exam findings, and any diagnostic results supporting the discharge/admit diagnosis, radiology results, the need for outpatient follow up, for definitive care. 11:55 ED course: in ultrasound. snw 12:36 Response to treatment: the patient's symptoms have mildly improved after treatment. snw 09/28 09:40 Order name: Test, Urine; Complete Time: 10:28 eh3 09/28 11:11 Order name: CBC with Diff; Complete Time: 11:49 snw 09/28 11:11 Order name: CMP; Complete Time: 11:55 snw 09/28 11:11 Order name: Lipase; Complete Time: 11:55 snw 09/28 11:24 Order name: Urine W/Microscopic (UAM); Complete Time: 11:49 snw 09/28 09:38 Order name: CT Stone Protocol; Complete Time: 11:08 snw 09/28 11:11 Order name: US Pelvis Complete; Complete Time: 12:27 snw 09/28 12:01 Order name: Transvaginal Study Probe; Complete Time: 12:35 EDMS 09/28 11:11 Order name: IV Saline Lock; Complete Time: 11:23 snw 09/28 11:11 Order name: Labs collected and sent; Complete Time: 11:23 snw Administered Medications: 10:23 Drug: Ketorolac IM 30 mg IM once Route: IM; Site: right deltoid; db 11:23 Follow up: Response: No adverse reaction db 12:13 Drug: NS 0.9% IV 1000 ml IV at 1 bolus Per protocol; 1000 mL bolus Route: IV; Rate: 1 db bolus; Site: right antecubital; 13:26 Follow up: Response: No adverse reaction; IV Status: Completed infusion; IV Intake: db 1000ml 12:13 Drug: Famotidine IVP 20 mg IVP once; dilute with 10 mL 0.9% NaCl; give over 2 minutes db Route: IVP; Site: right antecubital; 13:26 Follow up: Response: No adverse reaction db 12:13 Drug: HYDROcodone-acetaminophen PO 5 mg-325 mg 1 tabs PO once Route: PO; db 13:26 Follow up: Response: No adverse reaction db Disposition: 16:35 I was immediately available on-site in the Emergency Department for consultation in the ms3 care of the patient. Disposition Summary: 09/28/23 12:37 Discharge Ordered Notes: Location: Home snw Condition: Stable snw Diagnosis - Abdominal pain, Generalized snw Followup: snw - With: Emergency Department - When: As needed - Reason: Worsening of condition Followup: snw - With: Private Physician - When: 2 - 3 days - Reason: Recheck today's complaints, Continuance of care, Re-evaluation by your physician Discharge Instructions: - Discharge Summary Sheet snw - Abdominal Pain, Adult snw - Biliary Colic, Adult snw - Gas and Gas Pains, Pediatric snw - Diet for Polycystic Ovary Syndrome snw - Gallbladder Eating Plan snw Forms: - Medication Reconciliation Form snw - Thank You Letter snw - Antibiotic Education snw - Prescription Opioid Use snw - Patient Portal Instructions snw - Leadership Thank You Letter snw - Work release form db Prescriptions: - promethazine 25 mg Oral Tablet - take 1 tablet ORAL route every 6 hours As needed; 20 tablet; Refills: 0, snw Product Selection Permitted - dicyclomine 20 mg Oral tablet - take 1 tablet ORAL route 3 times per day As needed; 21 tablet; Refills: 0, snw Product Selection Permitted Signatures: Dispatcher YingYang, Zoe, EVENT COORDINATOR-C EVENT COORDINATOR-Csnw Idalia Cardona, RN RN iw Kayode Ervin, DO STEVENSON ms3 Shoshana Nagel, RN RN db
[2023-09-28 13:31] VITALS: TEMP 98.7; O2SAT 100
[2023-09-28 13:34] VITALS: BP 119/74
== END 2023-09-28 13:26 | disposition home or self-care (01) ==
LOC: ER 09:18
DX: R10.84 Generalized abdominal pain (principal); N83.209 Unspecified ovarian cyst, unspecified side; Z88.4 Allergy status to anesthetic agent
CPT/HCPCS: 96361; 85025; 81001; 36415; 81025; 83690; 80053; 76377; 74176; 76856; 76830; 96372; 96374; 99284; J7030

== ENCOUNTER 2025-03-12 22:51 | Emergency (ER) | payer OTHER ==
--- OUTSIDE RECORDS SUMMARY | 2025-03-12 22:53 | XMS REPORT | Clinical Summary ---
Author Name Unknown Organization [facility] Address [address] [place] [address] Care Team Providers Care Assistant Plant Controller Name Role Phone Rei Eckert MD Primary Care Provider + [phone] Allergies Active Allergy Reactions Criticality Noted Date Comments Oseltamivir Phosphate Itching 01/05/2015 Medications * This document contains information received from the source organization and may not represent a complete record from that organization. multivitamin (THERAGRAN) tablet Take 1 tablet by mouth daily. Active Active Problems Problem Noted Date Diagnosed Date Menorrhagia 10/10/2018 Cervical intraepithelial kaleigh plasia grade III with severe dysplasia 05/17/2018 Cervical high risk human pap illomavirus (HPV) DNA test positive 04/14/2017 Body mass index 25-29 - overweight 11/21/2016 Surgical History Surgery Date Site/Laterality Comments CERVICAL BIOPSY 06/14/2017 SECTION, LOW TRANSVERSE x3 TUBAL LIGATION 11/22/2016 Bilateral EXCISION OF CERVIX USING LOOP ELECTRODE 05/21/2017 - 05/23 Medical History Medical History Date Comments Cervical intraepithelial kaleigh plasia grade III with severe dysplasia 05/17/2018 Body mass index 25-29 - overweight 2017 Cardiac murmur 1980 present since bi rth Menorrhagia 10/10/2018 Family History Medical History Relation Name Comments Leukemia Other Niece Relation Name Status Comments Brother 1 Alive Brother 2 Alive Father Alive Mother Alive Other Niece Alive Sister Alive Social History Tobacco Use Types Packs/Day Years Used Date Smoking Tobacco: Never Smokeless Tobacco: Never Alcohol Use Standard Drinks/Week Comments Yes 0 (1 standard drink = 0.6 oz pur e alcohol) socially Comments No Sex and Gender Information Value Date Recorded Sex Assigned at Not on file Legal Sex Female 2:28 PM CDT Gender Identity Not on file Sexual Orientation Not on file 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 Not on file Not on file Not o n file Obstetrics History Para Term AB IAB SAB Ectopic Multiple Livin g Live Births 4 4 0 4 Date Outcome GA Total Labor Labor/2nd/3rd Weight Sex Type Anes PTL Cici A1 A5 Name Clin Para Para Para Para Comments Menarche 9 Parity 24 Last pap 08/07/18 negative Plan of Treatment Health Maintenance Due Date Last Done Comments COVID-19 Vaccine (2023-2 5 season) 2024 Influenza Vaccine (#1) 2024 Pneumococcal Vaccine Aged Out No long er eligible based on patient's age to complete this topic Insurance [facility] AETNA HMO Care Teams Assistant Plant Controller Relationship Specialty Start Date End Date Rei Eckert MD [address] [place] [address] [email or web address] PCP - General Gynecologic Medical Oncology 06/24/23
[2025-03-12] MEDS ORDERED: DIPHENHYDRAMINE 50 MG/ML VIAL ONE (23:18)
[2025-03-12] MEDS ORDERED: dexAMETHasone 10 MG/ML VIAL ONE (23:18)
[2025-03-12] MEDS ORDERED: METOCLOPRAMIDE 10 MG/2mL INJ ONE (23:18)
[2025-03-12] MEDS ORDERED: KETOROLAC 30 MG/ML INJ ONE (23:18)
[2025-03-12] MEDS ORDERED: NA CHLORIDE 0.9% 50 ML ONE (23:19)
[2025-03-12] MEDS ORDERED: NA CHLORIDE 0.9% 1,000 ML ONE (23:19)
--- NOTE | 2025-03-13 00:07 | ER ---
Nurse's Notes [facility] Name: Lyssa Bain Age: 44 yrs Sex: Female : 1980 Arrival Date: 03/12/2025 Time: 22:51 Bed 6 Private MD: Diagnosis: Migraine without aura, not intractable Presentation: 03/12 22:55 Chief complaint: Patient states: migraine since yesterday with nausea and sensitivity vc1 to light. Coronavirus screen: Client denies travel out of the [place] in the last 14 days. At this time, the client does not indicate any symptoms associated with coronavirus-19. Ebola Screen: Patient negative for fever greater than or equal to 101.5 degrees Fahrenheit, and additional compatible Ebola Virus Disease symptoms Patient denies exposure to infectious person. Patient denies travel to an Ebola-affected area in the 21 days before illness onset. No symptoms or risks identified at this time. Initial Sepsis Screen: Does the patient meet any 2 criteria? No. Patient's initial sepsis screen is negative. Does the patient have a suspected source of infection? No. Patient's initial sepsis screen is negative. Risk Assessment: Do you want to hurt yourself or someone else? Patient reports no desire to harm self or others. Onset of symptoms was March 11, 2025. 22:55 Method Of Arrival: Ambulatory vc1 22:55 Acuity: STEPHANY 4 vc1 Triage Assessment: 23:12 Headache History: The patient has had previous headaches and this one is similar to vc1 previous episodes. General: Appears in no apparent distress. uncomfortable, slender, well groomed, well developed, well nourished, Behavior is calm, cooperative, appropriate for age. Pain: Complains of pain in right eye and left eye Pain does not radiate. Pain currently is 10 out of 10 on a pain scale. Quality of pain is described as pressure, Pain began 1 day ago. Is continuous, Also complains of nausea, photophobia. EENT: No deficits noted. No signs and/or symptoms were reported regarding the EENT system. Neuro: Level of Consciousness is awake, alert, obeys commands, Oriented to person, place, time, situation, Appropriate for age Reports headache behind both eyes. Cardiovascular: Heart tones S1 S2 present Capillary refill < 3 seconds Patient's skin is warm and dry. Respiratory: Airway is patent Respiratory effort is even, unlabored, Respiratory pattern is regular, symmetrical, Breath sounds are clear bilaterally. GI: No deficits noted. No signs and/or symptoms were reported involving the gastrointestinal system. : No deficits noted. No signs and/or symptoms were reported regarding the genitourinary system. Derm: Skin is intact, is healthy with good turgor, Skin is dry, Skin is normal, Skin temperature is warm. Musculoskeletal: Circulation, motion, and sensation intact. Range of motion: intact in all extremities. 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 - Infectious Disease History:: Denies. - Social history:: Smoking status: Patient denies any tobacco usage or history of. Screenin:11 [facility] ED Fall Risk Assessment (Adult) History of falling in the last 3 months, vc1 including since admission No falls in past 3 months (0 pts) Confusion or Disorientation No (0 pts) Intoxicated or Sedated No (0 pts) Impaired Gait No (0 pts) Mobility Assist Device Used No (0 pt) Altered Elimination No (0 pt) Score/Fall Risk Level 0 - 2 = Low Risk Oriented to surroundings, Maintained a safe environment, Educated pt \T\ family on fall prevention, incl call for assistance when getting out of bed, Provided non-skid footwear, Hourly rounding (assess needs \T\ fall precautionary measures) done. Abuse screen: Denies threats or abuse. Nutritional screening: No deficits noted. Tuberculosis screening: No symptoms or risk factors identified. Assessment: 22:55 General: see triage assessment. vc1 23:57 Reassessment: Patient appears in no apparent distress at this time. Patient and/or vc1 family updated on plan of care and expected duration. Pain level reassessed. Patient is alert, oriented x 3, equal unlabored respirations, skin warm/dry/pink. Patient states feeling better. Patient states symptoms have improved. Vital Signs: 22:55 BP 127 / 81; Pulse 80; Resp 15; Temp 97.4; Pulse Ox 100% ; Weight 68.95 kg; Height 5 vc1 ft. 8 in. ; Pain 10/10; 22:55 Body Mass Index 23.11 (68.95 kg, 172.72 cm) vc1 22:55 Pain Scale: Adult vc1 Kushal Coma Score: 23:24 Eye Response: spontaneous(4). Motor Response: obeys commands(6). Verbal Response: kb oriented(5). Total: 15. ED Course: 22:53 Patient arrived in ED. [id number] 22:55 Arm band placed on left wrist. vc1 22:56 Jolene Cunningham FNP-C [facility] kb 22:56 Ghazala Mendoza MD is Attending Physician. kb 23:08 Madeline Mantilla RN is Primary Nurse. vc1 23:10 Triage completed. vc1 23:14 Patient has correct armband on for positive identification. Bed in low position. Call vc1 light in reach. Pulse ox on. NIBP on. Lights dimmed. 23:14 Provided Education on: plan of care. vc1 23:15 Inserted saline lock: 20 gauge in right antecubital area, using aseptic technique. mm11 Blood collected. Flushed with 10 mL NS. 03/13 00:18 No provider procedures requiring assistance completed. intact, bleeding controlled, No cp4 redness/swelling at site. Pressure dressing applied. Administered Medications: 03/12 23:28 Drug: NS 0.9% IV 1000 ml IV at 1000 ml once; to be given as a bolus over 60 minutes vc1 Route: IV; Rate: 1000 ml; Site: right antecubital; 03/13 00:19 Follow up: Response: No adverse reaction; IV Status: Completed infusion cp4 03/12 23:28 Drug: Ketorolac IVP 15 mg IVP once Route: IVP; Site: right antecubital; vc1 23:58 Follow up: Response: No adverse reaction; Marked relief of symptoms; Pain is decreased vc1 23:28 Drug: Decadron - Dexamethasone IVP 10 mg IVP once Route: IVP; Site: right antecubital; vc1 23:58 Follow up: Response: No adverse reaction; Marked relief of symptoms; Pain is decreased vc1 23:28 Drug: diphenhydrAMINE IVP 25 mg IVP once Route: IVP; Site: right antecubital; vc1 23:58 Follow up: Response: No adverse reaction; Marked relief of symptoms vc1 23:28 Drug: metoCLOPramide IVP 20 mg IVP once; over 15 mins Route: IVP; Site: right vc1 antecubital; 23:58 Follow up: Response: No adverse reaction; Marked relief of symptoms; Pain is decreased vc1 Medication: 23:14 VIS not applicable for this client. vc1 Outcome: 03/13 00:07 Discharge ordered by . hermila 00:18 Discharged to home ambulatory, cp4 00:18 Condition: stable 00:18 Discharge instructions given to patient, family, Instructed on discharge instructions, follow up and referral plans. Demonstrated understanding of instructions, follow-up care, 00:18 Patient left the ED. cp4 Signatures: Jolene Cunningham, WET ROASTER-C WET ROASTER-Ckb Isabell Nuñez jj6 Madeline Mantilla RN RN vc1 Mikayla Mistry cp4 raissa rubi mm11 Corrections: (The following items were deleted from the chart) 03/12 23:12 22:55 PSHx: section; vc1 vc1 23:12 23:12 PSHx: section; vc1 vc1
--- NOTE | 2025-03-13 00:07 | EDPHYS ---
Physician Documentation [facility] Name: Lyssa Bain Age: 44 yrs Sex: Female : 1980 Arrival Date: 03/12/2025 Time: 22:51 Bed 6 Private MD: ED Physician Ghazala Mendoza HPI: 03/12 23:23 This 44 yrs old Female presents to ER via Ambulatory with complaints of kb Headache. 23:23 Pt is a 44 year old male who presents for migraine that started yesterday with kb associated nausea. States this feels similar to previous migraines, but the pain is worse. Denies fever. . 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 - Infectious Disease History:: Denies. - Social history:: Smoking status: Patient denies any tobacco usage or history of. ROS: 23:24 Constitutional: As per HPI kb Exam: 23:24 Constitutional: This is a well developed, well nourished patient who is awake, alert, kb and in no acute distress. Head/Face: Normocephalic, atraumatic. ENT: Moist Mucous membranes Cardiovascular: Regular rate Respiratory: Respirations even and unlabored. No increased work of breathing. Talking in full sentences Skin: Warm, dry with normal turgor. Normal color. MS/ Extremity: Pulses equal, no cyanosis. Neurovascular intact. Full, normal range of motion. Neuro: Awake and alert, GCS 15, oriented to person, place, time, and situation. Vital Signs: 22:55 BP 127 / 81; Pulse 80; Resp 15; Temp 97.4; Pulse Ox 100% ; Weight 68.95 kg; Height 5 vc1 ft. 8 in. ; Pain 10/10; 22:55 Body Mass Index 23.11 (68.95 kg, 172.72 cm) vc1 22:55 Pain Scale: Adult vc1 Kushal Coma Score: 23:24 Eye Response: spontaneous(4). Motor Response: obeys commands(6). Verbal Response: kb oriented(5). Total: 15. MDM: 22:56 Medical Screening Exam initiated kb 23:24 Differential diagnosis: migraine, tension headache. Data reviewed: vital signs, nurses kb notes. 03/13 00:06 Counseling: I had a detailed discussion with the patient and/or guardian regarding the kb historical points, exam findings, and any diagnostic results supporting the discharge/admit diagnosis, the need for outpatient follow up, a family practitioner, to return to the emergency department if symptoms worsen or persist or if there are any questions or concerns that arise at home. ED course: symptoms resolved after treatment. 03/12 23:03 Order name: IV Start; Complete Time: 23:15 kb Administered Medications: 03/12 23:28 Drug: NS 0.9% IV 1000 ml IV at 1000 ml once; to be given as a bolus over 60 minutes vc1 Route: IV; Rate: 1000 ml; Site: right antecubital; 03/13 00:19 Follow up: Response: No adverse reaction; IV Status: Completed infusion cp4 03/12 23:28 Drug: Ketorolac IVP 15 mg IVP once Route: IVP; Site: right antecubital; vc1 23:58 Follow up: Response: No adverse reaction; Marked relief of symptoms; Pain is decreased vc1 23:28 Drug: Decadron - Dexamethasone IVP 10 mg IVP once Route: IVP; Site: right antecubital; vc1 23:58 Follow up: Response: No adverse reaction; Marked relief of symptoms; Pain is decreased vc1 23:28 Drug: diphenhydrAMINE IVP 25 mg IVP once Route: IVP; Site: right antecubital; vc1 23:58 Follow up: Response: No adverse reaction; Marked relief of symptoms vc1 23:28 Drug: metoCLOPramide IVP 20 mg IVP once; over 15 mins Route: IVP; Site: right vc1 antecubital; 23:58 Follow up: Response: No adverse reaction; Marked relief of symptoms; Pain is decreased vc1 Disposition Summary: 03/13/25 00:07 Discharge Ordered Notes: Location: Home kb Condition: Stable kb Diagnosis - Migraine without aura, not intractable kb Followup: kb - With: Emergency Department - When: As needed - Reason: Worsening of condition Followup: kb - With: Private Physician - When: 2 - 3 days - Reason: Recheck today's complaints, Continuance of care, Re-evaluation by your physician Discharge Instructions: - Discharge Summary Sheet kb - Migraine Headache, [id number] kb Forms: - Medication Reconciliation Form kb - Antibiotic Education kb - Prescription Opioid Use kb - Patient Portal Instructions kb - Leadership Thank You Letter kb Signatures: Jolene Cunningham FNP-C FNP-Ckb Calcote, Vanessa RN RN vc1 Mikayla Mistry cp4 Corrections: (The following items were deleted from the chart) 23:12 22:55 PSHx: section; vc1 vc1 23:12 23:12 PSHx: section; vc1 vc1
[2025-03-13 00:50] VITALS: BP 127/81; TEMP 97.4; O2SAT 100
== END 2025-03-13 00:18 | disposition home or self-care (01) ==
LOC: ER 22:51
DX: G43.009 Migraine without aura, not intractable, without status migrainosus (principal)
CPT/HCPCS: 96361; 96375; 96374; 99284; J2765; J1200; J1100; J7030